=== PATIENT | male | born 1995 | race African-American/Black ===

== ENCOUNTER 2021-09-09 08:19 | Emergency (ER) | payer OTHER ==
[2021-09-09 08:24] VITALS: BMI 22.8
[2021-09-09] MEDS ORDERED: IBUPROFEN 400 MG TABLET (FP) PO ONE ×2 (08:36→09:02)
[2021-09-09 09:08] VITALS: BP 116/63; PULSE 70; TEMP 98.5
== END 2021-09-09 09:39 | disposition home or self-care (01) ==
LOC: FER 08:19
DX: M54.50 Low back pain, unspecified (principal); V79.50XA Passenger on bus injured in collision with unspecified motor vehicles in traffic accident, initial encounter
CPT/HCPCS: 99283-25